=== PATIENT | female | born 1975 | race Caucasian/White ===

== ENCOUNTER → 2019-01-25 | Outpatient (CLI) | payer OTHER ==
[2019-01-25 10:29] VITALS: BP 138/76
[2019-01-25 10:40] LABS: CSF GLUCOSE 92 mg/dl (40-70); CSF PROTEIN 30.5 mg/dl (15-45)
[2019-01-25 11:06] LABS: CSF CLARITY CLEAR; CSF COLOR COLORLESS; CSF WBC 0 /mm3 (0-10); VOLUME 16.5 ml
[2019-01-25 11:08] LABS: CSF RBC 2 /mm3
[2019-01-25 12:02] VITALS: BP 117/55
[2019-01-25 12:30] VITALS: BP 117/55
== END | disposition home or self-care (01) ==
LOC: M.RAD 01-24 10:00
PROVIDERS: Psychiatry & Neurology Neurology
DX: G35 Multiple sclerosis (principal)

== ENCOUNTER 2019-01-28 17:35 | Emergency (ER) | payer OTHER ==
[~2019-01-28] VITALS: Ht 172.7 cm; Wt 86.2 kg
[2019-01-28] MEDS ORDERED: DYMISTA NASAL S23 GM (17:48)
[2019-01-28 19:40] LABS: ABSOLUTE BASOPHILS 0.1 thou/uL (0.0-0.2); ABSOLUTE EOSINOPHILS 0.1 thou/uL (0.0-0.7); ABSOLUTE LYMPHOCYTES 2.5 thou/uL (0.8-5.3); ABSOLUTE MONOCYTES 0.5 thou/uL (0.0-1.2); BASOPHILS 0.7 %; HEMATOCRIT 43.3 % (37.0-47.0); HEMOGLOBIN 15.3 gm/dL (12.0-15.0); LYMPHOCYTES 27.9 %; MCH 33.2 pg (26.0-34.0); MCHC 35.2 g/dL (28.0-37.0); MCV 94.3 fL (80.0-100.0); MPV 6.7 fl. (7.2-11.1); NUCLEATED RBCS 0 /100WBC; PLATELET COUNT* 219 thou/uL (150-400); POLYS 65.4 %; RBC 4.59 mil/uL (4.20-5.00); RDW-CV 12.4 % (10.5-14.5); WBC 9.1 thou/uL (4.0-11.0)
[2019-01-28 20:00] LABS: ALBUMIN 3.3 g/dL (3.4-5.0); CREATININE 0.7 mg/dL (0.6-1.3); POTASSIUM 3.6 mmol/L (3.5-5.1); TOTAL BILIRUBIN 0.4 mg/dL (<0.1-1.0); TOTAL PROTEIN 6.7 g/dL (6.4-8.2)
[2019-01-28 20:55] VITALS: BP 145/85
== END 2019-01-28 20:56 | disposition home or self-care (01) ==
LOC: M.ERS 17:35
PROVIDERS: Family Medicine
DX: G97.1 Other reaction to spinal and lumbar puncture (principal); G35 Multiple sclerosis; Z88.5 Allergy status to narcotic agent; Z88.0 Allergy status to penicillin; Z88.8 Allergy status to other drugs, medicaments and biological substances